=== PATIENT | male | born 1985 | race Caucasian/White ===

== ENCOUNTER 2018-12-11 14:54 | Emergency (ER) | payer MEDICAID ==
[~2018-12-11] VITALS: Ht 154.9 cm; Wt 87.4 kg
[2018-12-11 14:59] VITALS: BP 133/84; PULSE 95; RESP 18; Ht 154.9 cm; Wt 87.4 kg
[2018-12-11] MEDS ORDERED: IBUP800T48 PO (16:52)
[2018-12-11] MEDS ORDERED: AMOX500C2 PO (16:52)
--- NOTE | 2018-12-11 17:00 | ERD ---
ER Documentation Chief Complaint Chief Complaint LT SIDE DENTAL PAIN X 2 DAYS HPI 33-year-old male who was previously healthy presenting to the emergency department complaining of left upper dental pain in the molars. Symptoms have been intermittent for the past 3 days. He reports some radiation of pain to his left eye in the left ear. He tried no medication for relief of symptoms. He denies any fevers, chills, or other symptoms at this time. The patient states he has a follow-up appointment with his dentist in approximately 4 days. ROS All systems reviewed and are negative except as per history of present illness. Medications Home Meds Active Scripts Ibuprofen* (Motrin*) 800 Mg Tab, 800 MG PO Q6, #30 TAB Prov:CAMACHO JASMINE PA-C 12/11/18 Amoxicillin* (Amoxicillin*) 500 Mg Cap, 500 MG PO TID for 10 Days, CAP Prov:CAMACHO JASMINE PA-C 12/11/18 Allergies Allergies: Coded Allergies: No Known Allergy (Unverified , 01/10/14) PMhx/Soc Medical and Surgical Hx: pt denies Medical Hx FmHx Family History: No diabetes Physical Exam Vitals Vital Signs Date Temp Pulse Resp B/P (MAP) Pulse Ox O2 O2 Flow FiO2 Time Delivery Rate 12/11/18 98.6 95 18 133/84 98 14:59 (100) Physical Exam Const: No acute distress Head: Atraumatic. No significant facial or jaw swelling noted. There is no facial erythema Or warmth. Eyes: Normal Conjunctiva ENT: Normal External Ears, Nose and Mouth. Poor dentition. Mild gingival swelling noted to the left upper molar region. No obvious dental abscess. Neck: Full range of motion. No meningismus. Resp: Clear to auscultation bilaterally Cardio: Regular rate and rhythm, no murmurs Skin: No petechiae or rashes Ext: No cyanosis, or edema Neur: Awake and alert Psych: Normal Mood and Affect Procedures/MDM 33-year-old male presenting to the emergency department complaining of dental pain. The patient did have poor dentition with signs consistent with possible early dental abscess. Patient is nontoxic and well-appearing. Low suspicion for facial cellulitis, Yeyo angina, osteomyelitis of the jaw, sepsis, mening itis, or other emergencies. The patient is stable and appropriate for discharge and further treatment as an outpatient with a prescription for ibuprofen and amoxicillin. The patient agreed with the diagnosis, plan, need for follow-up, return precautions. Patient's blood pressure was elevated (>120/80) but appears stable without evidence of hypertension emergency or urgency. The patient is to follow-up and pursue outpatient monitoring and therapy with their primary care physician within 1 week and return immediately if they have any new, worsening, or concerning symptoms. Departure Diagnosis: Primary Impression: Pain, dental Condition: Fair Patient Instructions: Dental Pain Ref[facility] Usted se montemayor hecho un examen mdico de control que le indica que no est en niki condicin que requiera tratamiento urgente en el Departamento de Emergencia. Un estudio ms profundo y el tratamiento de meredith condicin pueden esperar sin ningn riesgo hasta que usted sea atendida/o en el consultorio de meredith mdico o niki clnica. Es responsabilidad suya arreglar niki basilio para el seguimiento del aubree. MANEJO DE CONDICIONES NO URGENTES EN EL FUTURO 1) Si usted tiene un mdico de atencin primaria: Usted debera llamar a meredith mdico de atencin primaria antes de venir al departamento de emergencia. Despus de las horas de consultorio, meredith doctor o meredith asociado/a est disponible por telfono. El mdico o enfermero de lisa en el servicio telefnico puede asesorarle por margaret medio para atender el problema, o aubree contrario se puede programar niki basilio. 2) Si usted no tiene un mdico de atencin primaria: Llame al mdico o clnica de referencia que aparece abajo baljinder las horas de consultorio para hacer niki basilio para que le vean. CLINICAS: [facility] 451 [phone] [address] [facility] [phone] [address] [facility] 097 [phone] [address] [facility] [phone] [address] [facility]. [facility] 508 [phone] [address] [facility]. [phone] [facility] ([facility] walk in clinic) Additional Instructions: Specialist:Usted tiene niki condicin mdica que requiere que jose de jesus a un especialista dentro de los prximos 1-2 garsia.POR FAVOR,CON MEREDITH SEGUIMIENTO DE PRIMARIA PHSICIAN refferal. SI USTED NO TIENE UN MDICO GENERAL Y / O USTED NO PUEDE PAGAR herson a un mdico,los siguientes yan RECURSOS sido suministrado a usted. ES MEREDITH RESPONSABILIDAD PARA SER VISTOS POR EL ESPECIALISTA: DENTIST CAMACHO JASMINE PA-C Dec 11, 2018 17:00
== END 2018-12-11 17:10 | disposition home or self-care (01) ==
LOC: FTE 14:54
DX: K08.89 Other specified disorders of teeth and supporting structures (principal)
CPT/HCPCS: 99283